=== PATIENT | female | born 1960 | race Caucasian/White ===

== ENCOUNTER 2023-10-22 15:16 | Emergency (ER) | payer OTHER, SELFPAY ==
[2023-10-22 15:21] VITALS: BP 159/80; BMI 30.9
--- NOTE | 2023-10-22 17:09 | ED.GENMED ---
History of Present Illness
General
Chief Complaint: Rabies
Source: patient
Exam Limitations: none
Time Seen by Provider: 10/22/23 16:21
Nursing documentation reviewed up to this point in time: agreed with
History of Present Illness
History of Present Illness:
pt is a 63 y/o F with h/o HTN
here because 3 days ago she was walking outside and something fluttered near her and she swatted at it and realized it was a bat
it was not resting on her and she is not aware of any bites
but her daughter thought she needed rabies
pt was doing some research and read about someone who of rabies after not being aware he was btten so she is here reqeutsing advice
she is more inclined not to take the rabies series than to take it
no bite esqueda
pt feels well
Past History
Past History
ED Past Medical History: GERD, HTN and Other (Anemia, hepatitis C. Is in rehab program.)
ED Past Surgical History: Cholecystectomy and Other (Ectopic removal)
Social History
Tobacco: Smoker
Alcohol: None
Drug: Former user
Personal: Single
Living: with family
Employment: Employed
Family History
Family History: Other
Review of Systems
Review of Systems
Allergies reviewed?: Yes
All Other Systems: Not applicable
Phy Exam
Physical Exam
Physical Exam:
GENERAL: Alert , in no apparent distress
CARDIAC: Regular rate and rhythm .
LUNGS: Clear breath sounds bilaterally, no acute respiratory distress, no wheezes/rales/rhonchi
NEUROLOGICAL: Alert and oriented, no focal neuro deficits
SKIN: Warm and dry, skin intact. no bites on hands shoulder
MUSCULOSKELETAL: No edema, well perfused. neg ave's sign
PSYCH: Normal and appropriate interaction.
Course
Vital Signs
Initial and Last Documented VS:
Initial Vital Signs
Temp Pulse Resp BP Pulse Ox
98.9 F 81 16 159/80 99
10/22/23 15:21 10/22/23 15:21 10/22/23 15:21 10/22/23 15:21 10/22/23 15:21
Last Documented Vital Signs
Temp Pulse Resp BP Pulse Ox
98.9 F 81 16 159/80 99
10/22/23 15:21 10/22/23 15:21 10/22/23 15:21 10/22/23 15:21 10/22/23 15:21
MDM/Problems Addressed
Differential Diagnosis Includes:
rabies exposure, medicine screening exam
MDM/Problems Addressed:
63 y/o F with h/o htn
here because she isn't sure she got exposed to rabies
3 daysa go was walking out of her house outside and suddenly felt something near her so she pushed it away, but realized it was a bat
it was very brief if any contact
and she had no puncture wounds
it was not resting on her
her daguther got her worried she needed rabies
pt actually would prefer not
d/w ed attending
low risk - but offered rabies if pt wanted it and at this point will decline
*Critical Care Note
Total Time (30-74mins, 75-104mins- exclusive of procedures): Not Applicable
ED Attending Note
-
Portions of this chart may have been created with voice recognition software.� Occasional wrong word or��sound alike� substitutions may have occurred due to the inherent limitations of voice recognition software.
Discharge Plan
Departure
Patient Disposition: Home (Routine Discharge)
Date of Disposition: 10/22/23
Time of Disposition: 17:14
Patient with high blood pressure during this ER visit?: Yes
Condition: Fair
Covid-19: Not Applicable
Discharge Problem:
Encounter for medical screening examination
Instructions: BLOOD PRESSURE
Prescriptions:
No Action
Amlodipine
1 tab PO DAILY
Hydrocodone 5/APAP 325
1 tab PO PRN PRN (Reason: pain)
Soma
1 tab PO PRN PRN (Reason: fibromyalgia)
Sudafed
1 tab PO PRN PRN (Reason: allergies)
Zyrtec
1 tab PO PRN PRN (Reason: allergies)
pantoprazole 40 MG tablet,delayed release (DR/EC)
40 mg PO BID Qty: 30 0RF
ondansetron HCl 4 MG tablet
4 mg PO TIDPRN PRN (Reason: nausea) Qty: 30 0RF
Referrals:
Krunal Vail DO [Family Provider] -
Activity Restrictions/Additional Instructions:
WE OPTED AGAINST RABIES SERIES AT [facility]
YOU CAN TALK IT OVER WITH YOUR DOCTOR WELL IF YOU LIKE
IT SOUNDS LIKE A LOW RISK EXPOSURE
Interventions
Interventions:
*Risk Screen - Suicide Last Done: 10/22/23 15:21
*General Assessment Last Done: 10/22/23 15:50
*Neglect/Abuse Screening Last Done: 10/22/23 15:21
ED- Fall Risk Assessment Last Done: 10/22/23 15:52
*ED COVID-19 Vaccine History Last Done: 10/22/23 15:50
Discharge Date and Time
Print Language: TURKMEN
== END 2023-10-22 17:20 | disposition home or self-care (01) ==
LOC: EMR 15:16
PROVIDERS: EMERGENCY PHYSICIAN Student in an Organized Health Care Education/Training Program; FAMILY PHYSICIAN Family Medicine
DX: Z03.89 Encounter for observation for other suspected diseases and conditions ruled out (principal); I10 Essential (primary) hypertension; K21.9 Gastro-esophageal reflux disease without esophagitis; J45.909 Unspecified asthma, uncomplicated; K58.9 Irritable bowel syndrome, unspecified; M79.7 Fibromyalgia; F17.200 Nicotine dependence, unspecified, uncomplicated; Z90.49 Acquired absence of other specified parts of digestive tract; Z88.6 Allergy status to analgesic agent
CPT/HCPCS: 99281